=== PATIENT | male | born 1955 | race Native Hawaiian/Other Pacific Islander ===

== ENCOUNTER 2017-08-28 11:06 | Emergency (ER) | payer OTHER ==
[~2017-08-28] VITALS: Ht 182.9 cm; Wt 129.3 kg
[2017-08-28] MEDS ORDERED: ASPIR-8181 MG (11:27)
[2017-08-28] MEDS ORDERED: MELOXICAM15 MG OR (11:28)
[2017-08-28] MEDS ORDERED: LYRICA75 MG OR (11:33)
[2017-08-28] MEDS ORDERED: KLOR-CON M2020 MEQ OR (11:34)
[2017-08-28] MEDS ORDERED: CLOPIDOGREL75 MG PO (11:34)
[2017-08-28] MEDS ORDERED: VIIBRYD40 MG OR (11:35)
[2017-08-28] MEDS ORDERED: ALLERGY RELIEF180 MG PO (11:36)
[2017-08-28] MEDS ORDERED: HYZAAR1 TA2 PO (11:36)
[2017-08-28] MEDS ORDERED: CLON0.5T36 PO (11:37)
[2017-08-28] MEDS ORDERED: TRAZ100T OR (11:38)
[2017-08-28 12:27] LABS: PLATELET COUNT 227 K/uL (142-355)
[2017-08-28 12:31] LABS: POTASSIUM 3.7 mmol/L (3.6-5.2); SODIUM 138 mmol/L (136-145)
[2017-08-28 14:00] VITALS: BP 163/83; TEMP 98.1
== END 2017-08-28 14:08 | disposition home or self-care (01) ==
LOC: ED 11:06
PROVIDERS: Family Medicine
DX: I10 Essential (primary) hypertension (principal); R53.1 Weakness
CPT/HCPCS: 36415; 80053; 81000; 84484; 85027; 93005; 96374; 99284; J0360